=== PATIENT | male | born 1970 | race Caucasian/White ===

== ENCOUNTER → 2021-01-31 10:09 | Outpatient (CLI) | payer OTHER, SELFPAY ==
--- NOTE | 2021-01-31 10:22 | XR_ITS ---
PROCEDURE: XR CHEST 2V CLINICAL HISTORY: SOB Shortness of air COMPARISON: No exams were available for comparison FINDINGS: The cardiomediastinal silhouette and pulmonary vascularity are within normal limits. The lungs are clear without infiltrates, suspicious nodules, or pleural effusions. Calcified granuloma is present in the right lower lobe. Right-sided pericardial fat pad is noted. IMPRESSION: No acute findings. Dictated by: Ravindra Alfred MD 01/31/2021 15:45 Ravindra Alfred MD in [place] 01/31/2021 15:45
--- NOTE | 2021-01-31 10:23 | XR_ITS ---
PROCEDURE: XR HIP LT 2-3V W/PELVIS CLINICAL INDICATION: LT HIP PAIN COMPARISON: No exams were available for comparison FINDINGS: There are mild osteoarthritic changes with slight decrease in the joint space superiorly and mild osteosclerosis of the acetabular roof. These findings are present involving both hips as seen on the AP view of the pelvis. No fracture or dislocation. No lytic or blastic change. IMPRESSION: Mild osteoarthritic changes of the hips Dictated by: Ravindra Alfred MD 01/31/2021 15:37 Ravindra Alfred MD in [place] 01/31/2021 15:37
== END ==
PROVIDERS: PCP Family Medicine; Visit Provider Family Medicine
DX: R06.00 Dyspnea, unspecified (principal); M25.552 Pain in left hip; Z72.0 Tobacco use
CPT/HCPCS: 71046; 73502

== ENCOUNTER 2021-10-07 10:07 | Emergency (ER) | payer OTHER, SELFPAY ==
[2021-10-07 10:08] VITALS: BP 159/87; PULSE 104; RESP 16; TEMP 37.5; O2SAT 98; BMI 30.9
--- NOTE | 2021-10-07 10:52 | HMH.EDGENADL ---
ED Disposition Clinical Impression: Post-op pain Disposition: Home, Self-Care Condition on Discharge: Fair Additional Instructions: Follow-up with Dr. Alvarez on Saturday. Continue to take antibiotics as prescribed. Referrals: Devin Alvarez MD [Primary Care Provider] - - Critical Care Critical Care Time: No Attestation: On 10/07/21, the high probability of a clinically significant, sudden or life threatening deterioration of the following system(s) required my full and direct attention, intervention and personal management. The time I documented below is in addition to time spent performing reported procedures but includes the following listed in this critical care notation. Medical Decision Making - Brice Inquiry Pt receiving controlled substance: Yes Brice was queried for this patient: Yes Risks and benefits of using a controlled substance: were discussed with pt by me Vital Signs: 10/07/21 10:08 Temperature 99.5 F Temperature Source Oral Pulse Rate [Radial] 104 H Respiratory Rate 16 Blood Pressure [Right Arm] 159/87 H Blood Pressure Mean [Right Arm] 111 Blood Pressure Position [Right Arm] Sitting 02 Sat by Pulse Oximetry 98 Oxygen Delivery Method Room Air Medical Decision Narrative: Patient 51-year-old male presenting to emergency department due to post operative dental swelling. Patient concerned that he increase in swelling, also concerned about the pain as he is only 1 pain control medication left. Patient was sent home on amoxicillin, as well as dexamethasone. Differential diagnosis the patient includes abscess, postsurgical swelling, dental infection among others. Given the patient currently taking appropriate antibiotics, is 1 day postoperative do not believe there is reason to investigate, will provide patient with more pain medication and patient will have follow-up with Dr. Alvarez. Patient directed to take repeat pictures to further assess any increase or decrease in swelling. General Adult HPI - General Chief complaint: PAIN Stated complaint: dental pain, swollen jaw Time Seen by Provider: 10/07/21 10:53 Mode of Arrival: Ambulatory Limitations: No Limitations Description of Symptoms (Recalled from ER Triage Doc. by RN): to ed per pvt car with c/o rt side facial swelling and pain. pt with hx of tooth abscess started antibiotics and drained yesterday. pt states woke up today and feels like swelling is getting worse. pt denies any fever, nausea, vomiting - History of Present Illness HPI narrative: She presented to emergency department after a root canal yesterday due to concern for increased swelling and pain. Patient only has 1 hydrocodone left and is concerned about the pain after he runs out of this. He is also concerned as he has a history of MRSA and was given amoxicillin. States that he has had increased swelling on the right side of his face, and his eye. Antibiotics as prescribed but has only taken them for 1 day. Denies any additional symptoms, fever, does state that he has had hot and cold chills. - Related Data Previous Rx's Medication Instructions Recorded peg 3350-electrolytes 236 240 ml PO Q10M #4000 ml 09/04/21 gram-22.74 gram-6.74 gram-5.86 gram solution Hydrocod/Acet 5/325 mg [[place] 1 tab PO Q6HP PRN #10 tab 10/07/21 5/325mg tablet] Allergies Allergy/AdvReac Type Severity Reaction Status Date / Time No Known Allergies Allergy Verified 09/04/21 14:45 [facility] History - Hepatitis A Screen Drug use history?: No High risk sexual behaviors?: No History of sexually transmitted infection?: No Currently employed?: No Childcare worker?: No Do you have indoor plumbing?: Yes Do you have electricity?: Yes Attestation statement:: This patient has been screened for Hepatitis A risk factors. I have reviewed the patient's past medical history: Yes ROS Obtained: Yes All systems reviewed & no additional complaints Physical Exam - General General
[2021-10-07 11:01] VITALS: BP 141/90; PULSE 87; RESP 18; O2SAT 96
[2021-10-07 11:15] VITALS: BP 124/77; PULSE 80; RESP 18; O2SAT 97
[2021-10-07 11:20] VITALS: BP 145/54; PULSE 78; RESP 16; TEMP 37.3; O2SAT 97
== END 2021-10-07 11:21 | disposition home or self-care (01) ==
PROVIDERS: Emergency Provider Emergency Medicine; PCP Family Medicine
DX: G89.18 Other acute postprocedural pain (principal); K04.7 Periapical abscess without sinus
CPT/HCPCS: 99281

== ENCOUNTER → 2023-07-22 08:04 | Outpatient (CLI) | payer OTHER, SELFPAY ==
--- NOTE | 2023-07-22 08:11 | MR_ITS ---
FINAL REPORT CLINICAL HISTORY: CHRONIC NECK PAIN FINDINGS: Multiplanar MR imaging of the cervical spine was performed without contrast. On the sagittal T2-weighted images, disc degeneration is seen throughout. There is partial fusion of C5-6. There is no evidence of fracture. The vertebral alignment is normal. The cervical spinal cord has an unremarkable appearance without evidence of mass, edema or syrinx. No significant canal stenosis is identified. The cervicomedullary junction is normal. C2-3: There is no significant canal stenosis or neural foraminal narrowing. C3-4: Annular disc bulge and right uncovertebral osteophytes. There is moderate right neuroforaminal narrowing. C4-5: There is an annular disc bulge without significant canal stenosis or neural foraminal narrowing. C5-6: There is no significant canal stenosis or neural foraminal narrowing. C6-7: Disc osteophyte complex with mild left neuroforaminal narrowing. C7-T1: Annular disc bulge with mild bilateral neuroforaminal narrowing. IMPRESSION: Multilevel degenerative disc disease with mild to moderate neuroforaminal narrowing as above. Reviewed, Interpreted and Dictated by Lul Rosario III, MD Transcribed by Lola Negrete Authenticated and [facility]
== END ==
LOC: RAD 08:05
PROVIDERS: PCP Family Medicine; Visit Provider Family Medicine
DX: M54.2 Cervicalgia (principal)
CPT/HCPCS: 72141; 76376

== ENCOUNTER 2024-01-21 08:30 | Day surgery (SDC) | payer OTHER, SELFPAY ==
[2024-01-09 11:00] VITALS: BMI 34.2
[2024-01-21 09:04] VITALS: BP 129/61; PULSE 85; RESP 16; TEMP 36.9; O2SAT 96
[2024-01-21] MEDS: LACTATED RINGERS 1000ML 1,000 ML 25 ML IV (09:09)
--- NOTE | 2024-01-21 09:24 | P.PNANES_ITS ---
[facility] Disclaimer: The information contained in this section may have been updated after the patient was seen, as this information can be updated by other users. Medical History No significant past medical history Surgical History History of foot surgery Family History Other Family history of aneurysm Social History Smoking Status: Current every day smoker alcohol intake: never substance use type: denies use current occupational status: employed Travel in the last 8 weeks: None [facility] Anesthesia Checklist Patient Identification Patient Identification: Verbal (Name & ) Structural Data Admitted From: Home Planned Operative Procedure/s: colonoscopy Consent for Planned Operative Procedure(s) Verified: Yes Airway Assessment Mallampati Score:: Class III C-Spine Mobility Assessed: Yes TMJ Mobility Assessed: Yes Dentition: Good Dentition Neurological Assessment Level of Consciousness: Awake, Alert and Appropriate Anesthesia Plan Anesthesia Risk discussed: Yes Anesthesia Plan: Verified ASA Class: II Anesthesia Type: MAC
--- NOTE | 2024-01-21 09:31 | P.PCN_ITS ---
Procedure: Date: 01/21/24 Patient Date of :: 1970 Procedure Performed:: Colonoscopy Indications:: Screening Performing Provider:: Max Garcia MD Referring Provider:: . Sedation:: Monitored anesthesia care Procedure:: After informed consent was obtained the patient was taken to the endoscopy suite. Sedation ensued after the patient was transferred to the left lateral decubitus position. Pulse, blood pressure, and oxygen saturation were monitored throughout the procedure. Digital rectal exam revealed no significant abnormality. The colonoscope was placed in position. The entire colon was eval uated. The colonoscope was carefully removed and the patient was transferred to recovery in stable condition. Please see findings and specimens below for detail. Findings:: Bowel preparation moderate to poor Specimens:: None Recommendations:: Repeat colonoscopy with extended bowel preparation in 1-2 years Complications:: No immediate with the exception of moderate to poor bowel preparation Estimated blood obtained (mL): 0 Colonoscopy Component Colonoscopy Component Was a colonoscopy performed during today's procedure?: Yes Recommended follow up colonoscopy of at least 10 years?: No If no, follow up colonoscopy recommended in ___ years?: (See above) Reason for not recommending >/= 10 yr follow-up interval?: (See above)
[2024-01-21 09:35] VITALS: O2SAT 96
[2024-01-21 10:02] VITALS: BP 101/66; PULSE 85; RESP 14; TEMP 34.4; O2SAT 94
[2024-01-21 10:12] VITALS: BP 102/77; PULSE 82; RESP 14; O2SAT 94
[2024-01-21 10:22] VITALS: BP 121/72; PULSE 80; RESP 16; O2SAT 95
[2024-01-21 10:32] VITALS: BP 121/66; PULSE 71; RESP 16; O2SAT 98
== END 2024-01-21 10:35 | disposition home or self-care (01) ==
PROVIDERS: Visit Provider Surgery
PROC: 0DJD8ZZ Inspection of Lower Intestinal Tract, Via Natural or Artificial Opening Endoscopic (ICD-10-PCS; CPT 45378; principal; 2024-01-21 09:30)
DX: Z12.11 Encounter for screening for malignant neoplasm of colon (principal)
CPT/HCPCS: 45378

== ENCOUNTER 2024-07-30 09:17 | Outpatient (CLI) | payer OTHER, SELFPAY ==
[2024-07-30 09:54] LABS: Alanine Aminotransferase 54 U/L (12-78); Albumin Level 4.5 g/dl (3.5-5.0); Albumin/Globulin Ratio 1.8 (1.1-1.8); Alkaline Phosphatase 53 U/L (38-126); Anion Gap 5.5 mEq/L (5-15); Aspartate Amino Transferase 46 U/L (17-59); Bilirubin,Total 0.6 mg/dl (0.2-1.3); Blood Urea Nitrogen 11 mg/dl (9-20); Calcium 9.7 mg/dl (8.4-10.2); Carbon Dioxide 31 mmol/L (22.0-30.0); Chloride 106 mmol/L (98-107); Chol/HDL Ratio 4.7 (1-3.5); Cholesterol 210 mg/dl (140-200); Estimated Glomerular Filt Rate 88 ml/min (>60); GFR (African American) 107 ML/MIN (>60); Globulin 2.5 g/dL (1.3-3.2); Glucose 96 mg/dl (74-100); HDL Cholesterol 45 mg/dl (40-60); Potassium 4.5 mmoL/L (3.5-5.1); Sodium 138 mmol/L (136-145); Triglycerides 89 mg/dl (30-150); VLDL Cholesterol 18 mg/dL (0-40)
[2024-07-30 10:59] LABS: Basophils # 0.1 K/mm3 (0-0.2); Basophils % 1.1 % (0.1-2.0); Eosinophils # 0.1 K/mm3 (0.0-0.4); Eosinophils % 2.1 % (0.1-12.0); Hematocrit 45.3 % (42.0-52.0); Hemoglobin 15.9 g/dL (14.1-18.0); Lymphocytes # 2.4 K/mm3 (0.7-4.5); Lymphocytes % 34.9 % (10-50); Mean Corpuscular Hemoglobin 31.2 pg (27.0-31.2); Mean Corpuscular Volume 89.2 fl (80-94); Mean Platelet Volume 7.9 fl (7.4-10.4); Monocytes # 0.3 K/mm3 (0.1-1.0); Monocytes % 4.8 % (1.7-9.3); Neutrophils # 3.8 K/mm3 (1.8-7.8); Platelet Count 146 K/mm3 (142-424); Red Blood Count 5.08 M/mm3 (4.60-6.20); White Blood Count 6.7 K/mm3 (4.8-10.8)
[2024-07-30 14:24] LABS: Prostate Specific Ag Screen 0.3 ng/ml (0.0-4.0)
== END 2024-07-30 23:59 | disposition home or self-care (01) ==
LOC: LAB 09:19
PROVIDERS: PCP Family Medicine; Visit Provider Family Medicine
DX: R53.83 Other fatigue (principal); Z00.00 Encounter for general adult medical examination without abnormal findings; N40.0 Benign prostatic hyperplasia without lower urinary tract symptoms
CPT/HCPCS: 36415; 80050; 80053; 80061; 83036; 84443; 85025; G0103

== ENCOUNTER 2025-02-16 09:11 | Outpatient (CLI) | payer OTHER, SELFPAY ==
[2025-02-16 10:48] LABS: Alanine Aminotransferase 45 U/L (12-78); Albumin Level 4.6 g/dl (3.5-5.0); Albumin/Globulin Ratio 1.8 (1.1-1.8); Alkaline Phosphatase 60 U/L (38-126); Anion Gap 9.3 mEq/L (5-15); Aspartate Amino Transferase 41 U/L (17-59); Bilirubin,Total 0.5 mg/dl (0.2-1.3); Blood Urea Nitrogen 9 mg/dl (9-20); Calcium 9.4 mg/dl (8.4-10.2); Carbon Dioxide 30 mmol/L (22.0-30.0); Chloride 107 mmol/L (98-107); Chol/HDL Ratio 4.8 (1-3.5); Cholesterol 190 mg/dl (140-200); Estimated Glomerular Filt Rate 88 ml/min (>60); GFR (African American) 107 ML/MIN (>60); Globulin 2.5 g/dL (1.3-3.2); Glucose 92 mg/dl (74-100); HDL Cholesterol 40 mg/dl (40-60); Potassium 4.3 mmoL/L (3.5-5.1); Sodium 142 mmol/L (136-145); Total Protein,Serum 7.1 g/dl (6.3-8.2); Triglycerides 165 mg/dl (30-150); VLDL Cholesterol 33 mg/dL (0-40)
[2025-02-16 10:59] LABS: Direct LDL Cholesterol 114.12 mg/dL (100-129)
== END 2025-02-16 23:59 | disposition home or self-care (01) ==
LOC: LAB 09:14
PROVIDERS: PCP Family Medicine; Visit Provider Family Medicine
DX: E78.5 Hyperlipidemia, unspecified (principal)
CPT/HCPCS: 36415; 80053; 80061

== ENCOUNTER 2025-10-01 09:49 | Outpatient (CLI) | payer OTHER, SELFPAY ==
[2025-10-01 10:15] LABS: Hematocrit 44.9 % (42.0-52.0); Hemoglobin 15.8 g/dL (14.1-18.0); Immature Granulocytes % 1.4 %; Mean Corpuscular HGB Conc 35.2 g/dL (31.8-35.4); Mean Corpuscular Hemoglobin 30.6 pg (27.0-31.2); Mean Corpuscular Volume 87.0 fl (80-94); Nucleated Red Blood Cells % 0 %; Platelet Count 124 K/mm3 (142-424); Red Blood Count 5.16 M/mm3 (4.60-6.20); Red Cell Distribution Width-SD 40.6 fL; White Blood Count 5.7 K/mm3 (4.8-10.8)
[2025-10-01 10:40] LABS: Hemoglobin A1C 4.8 % (4.0-6.0)
[2025-10-01 11:00] LABS: Albumin Level 5.0 g/dl (3.5-5.0); Chloride 102 mmol/L (98-107); Sodium 142 mmol/L (136-145)
[2025-10-01 11:01] LABS: Potassium 4.4 mmoL/L (3.5-5.1)
[2025-10-01 11:03] LABS: Alanine Aminotransferase 50 U/L (12-78); Anion Gap 16.4 mEq/L (5-15); Aspartate Amino Transferase 46 U/L (17-59); Blood Urea Nitrogen 14 mg/dl (9-20); Carbon Dioxide 28 mmol/L (22.0-30.0); Creatinine,Serum 1.10 mg/dl (0.66-1.25); Estimated Glomerular Filt Rate 70 ml/min (>60); GFR (African American) 84 ML/MIN (>60)
[2025-10-01 11:04] LABS: Albumin/Globulin Ratio 1.9 (1.1-1.8); Alkaline Phosphatase 57 U/L (38-126); Bilirubin,Total 0.6 mg/dl (0.2-1.3); Calcium 9.5 mg/dl (8.4-10.2); Cholesterol 164 mg/dl (140-200); Globulin 2.6 g/dL (1.3-3.2); Glucose 85 mg/dl (74-100); HDL Cholesterol 46 mg/dl (40-60); Total Protein,Serum 7.6 g/dl (6.3-8.2); Triglycerides 173 mg/dl (30-150)
== END 2025-10-01 23:59 | disposition home or self-care (01) ==
LOC: LAB 09:50
PROVIDERS: PCP Family Medicine; Visit Provider Family Medicine
DX: E78.5 Hyperlipidemia, unspecified (principal); E66.3 Overweight; Z12.5 Encounter for screening for malignant neoplasm of prostate
CPT/HCPCS: 36415; 80053; 80061; 83036; 85025; G0103